=== PATIENT | male | born 1940 | race Caucasian/White ===

== ENCOUNTER → 2019-03-20 | Emergency (ER) | payer MEDICARE, OTHER ==
[~2019-03-20] MED LIST: MORPHINE SULFATE 10 MG/ML INJ IV ONE; NORMAL SALINE 1000 ML 1,000 ML IV ONE; ONDANSETRON HCL INJ/PF 4 MG/2 ML SDV IV ONE; OXYCODONE-ACETAMINOPHEN 5-325 MG TABLET PO ONE
--- NOTE | 2019-03-20 15:20 | ER Document Report ---
ED Medical Screen (RME) - General Chief Complaint: Fall Injury Stated Complaint: FALL,RIGHT HIP PAIN Time Seen by Provider: 03/20/19 15:04 Primary Care Provider: JS WATSON [Primary Care Provider] - Follow up as needed Mode of Arrival: Medic Notes: Patient states that he stepped onto his porch and lost his balance causing him to fall. Patient states after the fall he did become lightheaded. Patient does complain of nausea. Patient denies any head injury chest pain or shortness of breath. Patient does complain of right hip pain. I have greeted and performed a rapid initial assessment of this patient. A comprehensive ED assessment and evaluation of the patient, analysis of test results and completion of the medical decision making process will be conducted by additional ED providers. TRAVEL OUTSIDE OF THE [place] 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
[2019-03-20 15:51] LABS: ABSOLUTE BASOPHILS # (AUTO) 0.1 10^3/uL (0.0-0.2); ABSOLUTE EOSINOPHILS # (AUTO) 0.1 10^3/uL (0.0-0.6); ABSOLUTE LYMPHOCYTES (AUTO) 2.2 10^3/uL (0.5-4.7); ABSOLUTE MONOCYTES (AUTO) 0.6 10^3/uL (0.1-1.4); ABSOLUTE NEUT (AUTO) 8.1 10^3/uL (1.7-8.2); BASOPHILS % (AUTO) 1.2 % (0-2); HEMATOCRIT 39.8 % (37.9-51.0); HEMOGLOBIN 13.8 g/dL (13.5-17.0); LYMPHOCYTES % (AUTO) 19.5 % (13-45); MEAN CORPUSCULAR HEMOGLOBIN 30.9 pg (27.0-33.4); MEAN CORPUSCULAR HGB CONC 34.7 g/dL (32.0-36.0); MEAN CORPUSCULAR VOLUME 89 fl (80-97); MONOCYTES % (AUTO) 5.2 % (3-13); PLATELET COUNT 289 10^3/uL (150-450); RED BLOOD COUNT 4.47 10^6/uL (4.35-5.55); RED CELL DISTRIBUTION WIDTH 13.8 % (11.5-14.0); SEGMENTED NEUTROPHILS % (AUTO) 73.1 % (42-78); TOTAL CELLS COUNTED % (AUTO) 100 %; WHITE BLOOD COUNT 11.1 10^3/uL (4.0-10.5)
--- NOTE | 2019-03-20 16:02 | RADIOLOGY REPORT (SQ) ---
EXAM DESCRIPTION: HIP RIGHT AP/LATERAL COMPLETED DATE/TIME: 03/20/2019 3:45 pm REASON FOR STUDY: fall, hip pain COMPARISON: None. NUMBER OF VIEWS: Two views. TECHNIQUE: AP pelvis and additional frog-leg view of the right hip. LIMITATIONS: None. FINDINGS: MINERALIZATION: Osteopenia. RIGHT HIP: No fracture seen. No dislocation. LEFT HIP: No fracture or dislocation. No worrisome bone lesions. PUBIS AND ISCHIUM: No fracture. PELVIS: No fracture. SACRUM: No fracture or dislocation. No worrisome bone lesions. 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 SOFT TISSUES: Scattered vascular calcifications. OTHER: No other significant finding. IMPRESSION: No acute fracture or dislocation. However, evaluation suboptimal due to diffuse osteope jose j. If there is clinical concern for radiographically occult fracture, recommend cross-sectional im aging for further evaluation. TECHNICAL DOCUMENTATION: JOB ID: [id number] [employer]- All Rights Reserved Reading location - IP/workstation name: [email or web address]
[2019-03-20 16:09] LABS: ALANINE AMINOTRANSFERASE 39 U/L (21-72); ALBUMIN 3.7 g/dL (3.5-5.0); ALKALINE PHOSPHATASE 235 U/L (38-126); ANION GAP 9 (5-19); ASPARTATE AMINO TRANSFERASE 34 U/L (17-59); BILIRUBIN,DIRECT 0.3 mg/dL (0.0-0.4); BILIRUBIN,TOTAL 1.1 mg/dL (0.2-1.3); BLOOD UREA NITROGEN 14 mg/dL (7-20); CALCIUM 9.1 mg/dL (8.4-10.2); CARBON DIOXIDE 26 mmol/L (22-30); CHLORIDE 102 mmol/L (98-107); GLUCOSE 294 mg/dL (75-110); POTASSIUM 4.7 mmol/L (3.6-5.0); TOTAL PROTEIN 6.9 g/dL (6.3-8.2)
--- NOTE | 2019-03-20 16:54 | RADIOLOGY REPORT (SQ) ---
EXAM DESCRIPTION: CT RT LOWER EXTREMITY WITHOUT COMPLETED DATE/TIME: 03/20/2019 4:40 pm REASON FOR STUDY: fall pain COMPARISON: Earlier same day right hip radiographs TECHNIQUE: CT scan of the right hip performed without intravenous or oral contrast. Images reviewed with soft tissue and bone windows. Reconstructed coronal and sagittal MPR images reviewed. All liliana ges stored on PACS. All CT scanners at this facility use dose modulation, iterative reconstruction, and/or weight based d osing when appropriate to reduce radiation dose to as low as reasonably achievable (ALARA). [facility]: Dose Right [facility]: CareDose [facility]: Dose Right [facility]: Teradose 4D [facility]: Smart [employer] RADIATION DOSE: CT Rad equipment meets quality standard of care and radiation dose reduction techniq ues were employed. CTDIvol: 14.7 mGy. DLP: 389 mGy-cm. mGy. LIMITATIONS: None. FINDINGS: Bones: Diffuse osteopenia. Comminuted minimally displaced fracture involving the base of the right femoral neck extending into the intertrochanteric region and greater trochanter of the rig ht femur. No additional fracture seen. Right hip remains aligned. No focal sclerotic or lytic osse ous lesion. Soft tissues: Minimal subcutaneous fat stranding. Scattered vascular calcifications. No radiopaque foreign body or soft tissue gas. Other: Visualized intrapelvic contents are normal. IMPRESSION: Comminuted, minimally displaced fracture involving the base of the right femoral neck ex tending into the intertrochanteric region and greater trochanter of right femur. TECHNICAL DOCUMENTATION: JOB ID: [id number] Quality ID # [id number]: Final reports with documentation of one or more dose reduction techniques (e.g., Au tomated exposure control, adjustment of the mA and/or kV according to patient size, use of iterative reconstruction technique) 2010 [employer]- All Rights Reserved Reading location - IP/workstation name: [email or web address]
--- NOTE | 2019-03-20 17:59 | ER Document Report ---
ED Fall - General Chief Complaint: Fall Injury Stated Complaint: FALL,RIGHT HIP PAIN Time Seen by Provider: 03/20/19 15:04 Primary Care Provider: JS WATSON [Primary Care Provider] - Follow up as needed Mode of Arrival: Medic Information source: Patient, Relative Notes: 78-year-old male presented to ED for complaint of pain to his right hip. He states he fell off of his porch after losing his balance causing him to fall. He states after he fell he became lightheaded. He states the pain causes him to be very nauseated. He denies hitting his head any chest pain or any shortness of breath. He does have severe pain to his right hip. He was seen by Shy Arriaga SURGICAL TECHNICIAN ordered a x-ray which showed that they could not tell if he had a fracture or not due to the fact that he was osteopenic. After I got this result back I did order a CT of the right lower extremity. The CT does show a comminuted, minimally displaced fracture involving the base of the right femoral neck extending into the intertrochanter region and the greater trochanter of the right femur. TRAVEL OUTSIDE OF THE [place] IN LAST 30 DAYS: No - HPI Occurred: This morning Where: Home, Outdoors Context: Tripped, Slipped Associated symptoms: None Location of injury/pain: Hip Quality of pain: Sharp, Stabbing, Throbbing Severity: Severe Pain Level: 5 - Related data Allergies/Adverse Reactions: No Known Allergies Allergy (Verified 03/20/19 14:27) Past Medical History - General Information source: Patient, Relative - Social History Smoking Status: Never Smoker Chew tobacco use (# tins/day): No Frequency of alcohol use: None Drug Abuse: None Lives with: Family Family History: Reviewed & Not Pertinent Patient has suicidal ideation: No Patient has homicidal ideation: No - Past Medical History Cardiac Medical History: Reports: Hx Hypertension Denies: Hx Coronary Artery Disease, Hx Heart Attack Pulmonary Medical History: Reports: None EENT Medical History: Reports: None Neurological Medical History: Reports: None Endocrine Medical History: Reports: Hx Diabetes Mellitus Type 2 Renal/ Medical History: Reports: None Malignancy Medical History: Reports None GI Medical History: Reports: None Musculoskeletal Medical History: 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, Reports Hx Musculoskeletal Trauma Skin Medical History: Reports None Psychiatric Medical History: Reports: None Traumatic Medical History: Reports: Hx Fractures Infectious Medical History: Reports: None Surgical Hx: Negative - Immunizations Hx Diphtheria, Pertussis, Tetanus Vaccination: Yes Review of Systems - Review of Systems Constitutional: No symptoms reported EENT: No symptoms reported Cardiovascular: No symptoms reported, Lightheaded - After fall Respiratory: No symptoms reported Gastrointestinal: Nausea - After fall Genitourinary: No symptoms reported Male Genitourinary: No symptoms reported Musculoskeletal: Joint pain - Right hip pain externally rotated unable to move hip without severe pain Skin: No symptoms reported Hematologic/Lymphatic: No symptoms reported Neurological/Psychological: No symptoms reported -: Yes All other systems reviewed and negative Physical Exam - Vital signs Vitals: Temp Pulse Resp BP Pulse Ox 97.5 F 57 L 16 157/61 H 95 03/20/19 14:32 03/20/19 14:32 03/20/19 14:32 03/20/19 14:32 03/20/19 14:32 Interpretation: Normal - General General appearance: Appears well, Alert - HEENT Head: Normocephalic, Atraumatic Eyes: Normal Pupils: PERRL - Respiratory Respiratory status: No respiratory distress Chest status: Nontender Breath sounds: Normal Chest palpation: Normal - Cardiovascular Rhythm: Regular Heart sounds: Normal auscultation Murmur: No - Abdominal Inspection: Normal Distension: No distension Bowel sounds: Normal Tenderness: Nontender Organomegaly: No organomegaly - Back Back: Normal, Nontender - Extremities General upper extremity: Normal inspection, Nontender, Normal color, Normal ROM, Normal temperature General lower extremity: Normal color, Normal temperature. No: Tameka's sign Hip: Tender, Pain with ROM, Unable to bear weight, Other - Externally rotated. No: Deformity, Dislocation, Ecchymosis, Instability, Laceration Thigh: Tender, Unable to bear weight. No: Ecchymosis Knee: Normal, Nontender Calf: Normal, Nontender Ankle: Normal, Nontender Foot: Normal, Nontender - Neurological Neuro grossly intact: Yes Cognition: Normal Orientation: AAOx4 Turner Coma Scale Eye Opening: Spontaneous Alexandra Coma Scale Verbal: Oriented Turner Coma Scale Motor: Obeys Commands Alexandra Coma Scale Total: 15 Speech: Normal Motor strength normal: LUE, RUE, LLE, RLE Sensory: Normal - Psychological Associated symptoms: Normal affect, Normal mood - Skin Skin Temperature: Warm Skin Moisture: Dry Skin Color: Normal Course - Re-evaluation Re-evalutation: 03/20/19 18:[address] Mesa history physical x-ray results and CT results. She stated since we do not have orthopedics the patient will need to be transferred. [facility] transfer line has been called and waiting callback from orthopedics. 03/20/19 18:[address]Sean Gutierrez who accepted the patient at [facility] for transfer. [facility] will send a truck for the patient. Patient and family have been informed that they will be going to [facility]. IV fluids are running and patient has received morphine for his pain he received Percocet earlier but still had pain. Patient is stable except for the pain to the right hip. 03/20/19 20:01 Transport is present at the bedside for transfer to [facility]. Patient states he is having pain 9/10 at this moment so I will give him 4 mg IV morphine before movement to the stretcher for transfer. Patient is stable and he will be transported [facility]. - Vital Signs Vital signs: Temp Pulse Resp BP Pulse Ox 98.0 F 63 16 153/72 H 95 03/20/19 20:12 03/20/19 20:12 03/20/19 20:12 03/20/19 20:12 03/20/19 20:12 - Laboratory Result Diagrams: 03/20/19 15:36 03/20/19 15:36 Laboratory results interpreted by me: 03/20/19 03/20/19 03/20/19 15:36 15:36 19:49 WBC 11.1 H Glucose 294 H Alkaline Phosphatase 235 H Urine Protein 30 H Urine Glucose (UA) >=500 H Urine Blood MODERATE H - Diagnostic Test Radiology reviewed: Image reviewed, Reports reviewed - EKG Interpretation by Ct EKG shows normal: Sinus rhythm Rate: Normal Rhythm: NSR Fabius/QRS: Left axis deviation Discharge - Discharge Clinical Impression: Closed right hip fracture Qualifiers: Encounter type: initial encounter Qualified Code(s): S72.001A - Fracture of unspecified part of neck of right femur, initial encounter for closed fracture Condition: Stable Disposition: [facility] Referrals: LOCALMD,NO [Primary Care Provider] - Follow up as needed
--- NOTE | 2019-03-20 18:50 | ER Document Report ---
Doctor's Note Notes: 03/20/19 18:49 Patient seen in conjunction with the nurse practitioner, please see her note correlate with mine. In short this patient tripped, fell onto his right side, and fractured his right hip. He denies hitting his head or losing consciousness. He has no neck or back pain. Physical exam reveals a non- shortened, but externally rotated right leg. He is tender over the right greater trochanter. Neurovascularly intact distally. Imaging does reveal a femoral neck fracture. Unfortunately do not have orthopedics here today. We will transfer the patient for further care.
[2019-03-20 20:15] VITALS: BP 153/72
[2019-03-20 20:33] LABS: APPEARANCE,URINE CLEAR; BILIRUBIN,URINE NEGATIVE (NEGATIVE); COLOR,URINE YELLOW; GLUCOSE, URINE >=500 mg/dL (NEGATIVE); KETONES,URINE NEGATIVE (NEGATIVE); LEUKOCYTE ESTERASE,URINE NEGATIVE (NEGATIVE); NITRITE,URINE NEGATIVE (NEGATIVE); PROTEIN,URINE 30 mg/dL (NEGATIVE); URINE SPECIFIC GRAVITY 1.018; UROBILINOGEN,URINE NEGATIVE mg/dL (<2.0)
--- NOTE | 2019-03-20 22:02 | EKG REPORT ---
SEVERITY:- ABNORMAL ECG - SINUS RHYTHM LEFT AXIS DEVIATION LEFT VENTRICULAR HYPERTROPHY : Confirmed by: Amaury Caldwell MD 20-Mar-2019 22:01:46
== END | disposition short-term general hospital (02) ==
LOC: ER 14:26
DX: S72.001A Fracture of unspecified part of neck of right femur, initial encounter for closed fracture (principal); R40.2412 Glasgow coma scale score 13-15, at arrival to emergency department; W01.0XXA Fall on same level from slipping, tripping and stumbling without subsequent striking against object, initial encounter; Y92.008 Other place in unspecified non-institutional (private) residence as the place of occurrence of the external cause; I10 Essential (primary) hypertension; E11.9 Type 2 diabetes mellitus without complications; M19.90 Unspecified osteoarthritis, unspecified site
CPT/HCPCS: 93005; 96376; 99285; 96361; 96374; 96375; 36415; 85025; 80053; 81001; 73502; 73700; 93010; J2270; A9270; J2405; J7030

== ENCOUNTER 2019-08-01 13:14 | Observation (INO) | payer MEDICARE, OTHER ==
[2019-08-01 14:47] LABS: ABSOLUTE LYMPHOCYTES (AUTO) 1.8 10^3/uL (0.5-4.7); ABSOLUTE MONOCYTES (AUTO) 0.4 10^3/uL (0.1-1.4); ABSOLUTE NEUT (AUTO) 5.5 10^3/uL (1.7-8.2); BASOPHILS % (AUTO) 0.3 % (0-2); EOSINOPHILS % (AUTO) 0.5 % (0-6); HEMATOCRIT 36.1 % (37.9-51.0); HEMOGLOBIN 12.2 g/dL (13.5-17.0); MEAN CORPUSCULAR HEMOGLOBIN 28.5 pg (27.0-33.4); MEAN CORPUSCULAR HGB CONC 33.7 g/dL (32.0-36.0); MEAN CORPUSCULAR VOLUME 85 fl (80-97); MONOCYTES % (AUTO) 5.4 % (3-13); PLATELET COUNT 290 10^3/uL (150-450); RED BLOOD COUNT 4.28 10^6/uL (4.35-5.55); RED CELL DISTRIBUTION WIDTH 15.3 % (11.5-14.0); SEGMENTED NEUTROPHILS % (AUTO) 70.8 % (42-78); TOTAL CELLS COUNTED % (AUTO) 100 %; WHITE BLOOD COUNT 7.8 10^3/uL (4.0-10.5)
[2019-08-01 15:08] LABS: ALBUMIN 2.9 g/dL (3.5-5.0); ALKALINE PHOSPHATASE 277 U/L (38-126); ANION GAP 11 (5-19); ASPARTATE AMINO TRANSFERASE 44 U/L (17-59); BILIRUBIN,DIRECT 0.3 mg/dL (0.0-0.4); BILIRUBIN,TOTAL 0.6 mg/dL (0.2-1.3); BLOOD UREA NITROGEN 11 mg/dL (7-20); CALCIUM 8.3 mg/dL (8.4-10.2); CARBON DIOXIDE 22 mmol/L (22-30); CHLORIDE 109 mmol/L (98-107); GLUCOSE 115 mg/dL (75-110); POTASSIUM 3.7 mmol/L (3.6-5.0); TOTAL PROTEIN 6.2 g/dL (6.3-8.2)
[2019-08-01 17:05] LABS: APPEARANCE,URINE SLIGHTLY-CLOUDY; COLOR,URINE YELLOW; GLUCOSE, URINE NEGATIVE (NEGATIVE)
[2019-08-01 17:06] LABS: BILIRUBIN,URINE NEGATIVE (NEGATIVE); KETONES,URINE NEGATIVE (NEGATIVE); LEUKOCYTE ESTERASE,URINE LARGE (NEGATIVE); NITRITE,URINE POSITIVE (NEGATIVE); PROTEIN,URINE 30 mg/dL (NEGATIVE); URINE SPECIFIC GRAVITY 1.009; UROBILINOGEN,URINE NEGATIVE mg/dL (<2.0)
--- NOTE | 2019-08-01 17:50 | ER Document Report ---
ED Blood Sugar Problem - General Chief Complaint: Low Blood Sugar Stated Complaint: DIABETIC ISSUES Time Seen by Provider: 08/01/19 15:43 Mode of Arrival: Medic Information source: Patient, Relative, Emergency Med Personnel TRAVEL OUTSIDE OF THE [place] IN LAST 30 DAYS: No - HPI Notes: Patient is brought in by paramedics for low blood sugar. Patient lives with his daughter at home. Today it was noticed by daughter that he was unresponsive and had a blood sugar of 32. She was able to get some cake icing in him. Apparently he was also given some glucose by paramedics. By the time he arrived here his blood sugar was back above 100. Patient is a very poor historian and confused. His history is not reliable. Currently he denies any pain or trouble breathing. He denies any nausea. Apparently per daughter, whom I spoke to on the phone, patient had a similar episode yesterday. However when paramedics were called he refused to come to the hospital. Today he did agree to come so paramedics brought him. She states that there is been no new changes of medication. No changes of appetite. He states he has had some loose stool for 3 to 4 days. She also states recently he has had a "infected gallbladder". She states that he was not operated on but a drain was placed. She states his drain was removed several weeks ago. Patient symptoms were intermittent. There are made better with glucose and worse without it. There is no known radiation symptoms. They were severe. - Related Data Allergies/Adverse Reactions: metformin Adverse Reaction (Verified 08/01/19 14:08) Home Medications: Lantus Past Medical History - General Information source: Patient - Social History Smoking Status: Former Smoker Frequency of alcohol use: None Drug Abuse: None Family History: Reviewed & Not Pertinent Patient has suicidal ideation: No Patient has homicidal ideation: No - Past Medical History Cardiac Medical History: Reports: Hx Hypertension Denies: Hx Coronary Artery Disease, Hx Heart Attack Pulmonary Medical History: Denies: Hx Asthma, Hx Bronchitis, Hx COPD, Hx Pneumonia Neurological Medical History: Denies: Hx Cerebrovascular Accident, Hx Seizures Endocrine Medical History: Reports: Hx Diabetes Mellitus Type 2 Renal/ Medical History: Denies: Hx Peritoneal Dialysis Musculoskeletal Medical History: 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 Denies: Hx Pacemaker - Immunizations Hx Diphtheria, Pertussis, Tetanus Vaccination: Yes Review of Systems - Review of Systems -: Yes ROS unobtainable due to patient's medical condition - Patient has significant confusion and is an unreliable historian Physical Exam - Vital signs Vitals: Pulse Ox 97 08/01/19 13:29 Interpretation: Normal - General General appearance: Appears well, Alert In distress: None - HEENT Head: Normocephalic, Atraumatic Eyes: Normal Pupils: PERRL - Respiratory Respiratory status: No respiratory distress Chest status: Nontender Breath sounds: Normal Chest palpation: Normal - Cardiovascular Rhythm: Regular Heart sounds: Normal auscultation Murmur: No - Abdominal Inspection: Normal Distension: No distension Bowel sounds: Normal Tenderness: Nontender Organomegaly: No organomegaly - Back Back: Normal, Nontender - Extremities General upper extremity: Normal inspection, Nontender, Normal color, Normal ROM, Normal temperature General lower extremity: Normal inspection, Nontender, Normal color, Normal ROM, Normal temperature, Normal weight bearing. No: Tameka's sign - Neurological Cognition: Confused Orientation: Disoriented to time Alexandra Coma Scale Eye Opening: Spontaneous Lincoln Coma Scale Verbal: Confused Alexandra Coma Scale Motor: Obeys Commands Alexandra Coma Scale Total: 14 Speech: Normal Motor strength normal: LUE, RUE, LLE, RLE Sensory: Normal - Psychological Associated symptoms: Normal affect, Normal mood - Skin Skin Temperature: Warm Skin Moisture: Dry Skin Color: Normal Course - Re-evaluation Re-evalutation: 08/01/19 17:49 Patient is brought in from home for low blood sugar. Patient is noticed as well to have a urinary tract infection. Per daughter his confusion is worse than baseline. Patient has had multiple episodes of hypoglycemia over the last several days. It seems most prudent to bring the patient in for adjustment of his insulin as well as treatment of the urinary tract infection. - Vital Signs Vital signs: Temp Pulse Resp BP Pulse Ox 97.0 F 21 H 159/92 H 96 08/01/19 14:01 08/01/19 14:01 08/01/19 14:01 08/01/19 14:01 - Laboratory Result Diagrams: 08/01/19 14:41 08/01/19 14:41 Laboratory results interpreted by me: 08/01/19 08/01/19 08/01/19 14:39 14:41 14:41 RBC 4.28 L Hgb 12.2 L Hct 36.1 L RDW 15.3 H Chloride 109 H Glucose 115 H POC Glucose 114 H Hemoglobin A1c % Calcium 8.3 L Alkaline Phosphatase 277 H Total Protein 6.2 L Albumin 2.9 L Urine Protein Urine Blood Urine Nitrite Ur Leukocyte Esterase 08/01/19 08/01/19 08/01/19 14:41 16:10 16:32 RBC Hgb Hct RDW Chloride Glucose POC Glucose 126 H Hemoglobin A1c % 6.3 H Calcium Alkaline Phosphatase Total Protein Albumin Urine Protein 30 H Urine Blood SMALL H Urine Nitrite POSITIVE H Ur Leukocyte Esterase LARGE H 08/01/19 17:31 RBC Hgb Hct RDW Chloride Glucose POC Glucose 122 H Hemoglobin A1c % Calcium Alkaline Phosphatase Total Protein Albumin Urine Protein Urine Blood Urine Nitrite Ur Leukocyte Esterase Discharge - Discharge Clinical Impression: Hypoglycemia, Confusion UTI (urinary tract infection) Qualifiers: Urinary tract infection type: acute cystitis Hematuria presence: with hematuria Qualified Code(s): N30.01 - Acute cystitis with hematuria Condition: Stable Disposition: ADMITTED INPATIENT Admitting Provider: Sylvia (Hospitalist) - chiki hernandez do admit Unit Admitted: Medical Floor
[2019-08-01] MEDS ORDERED: NORMAL SALINE 1000 ML 1,000 ML IV ONE (17:51)
[2019-08-01] MEDS ORDERED: CEFTRIAXONE 1 GM/D5W RTU 1 GM/50 ML RTUPB IV ONE (17:51)
[2019-08-01] MEDS ORDERED: DEXTROSE 50%-WATER 25 GM/50 ML DISP.SYRIN IV PRN ×2 (18:31)
[2019-08-01] MEDS ORDERED: GLUCAGON,HUMAN RECOMB 1 MG INJ IM PRN (18:31)
[2019-08-01] MEDS ORDERED: DEXTROSE 40% GEL 15 GM TUBE PO PRN ×2 (18:31)
[2019-08-01] MEDS ORDERED: ACETAMINOPHEN 325 MG TABLET PO PRN (18:32)
[2019-08-01] MEDS ORDERED: MAGNESIUM HYDROXIDE SUSP 30 ML UDCUP PO PRN (18:32)
[2019-08-01] MEDS ORDERED: ALBUTEROL SULFATE 0.083% NEB 2.5 MG/3 ML AMPUL NEB PRN (18:32)
[2019-08-01] MEDS ORDERED: NORMAL SALINE 1000 ML 1,000 ML IV PRN (18:32)
[2019-08-01] MEDS ORDERED: MAG HYDROX/AL HYDROX/SIMETH SUSP 30 ML UDCUP PO PRN (18:32)
[2019-08-01] MEDS ORDERED: ONDANSETRON HCL INJ/PF 4 MG/2 ML SDV IV PRN (18:32)
[2019-08-01] MEDS ORDERED: HYDRALAZINE HCL INJ/PF 20 MG/1 ML SDV IV PRN (18:36)
--- NOTE | 2019-08-01 18:36 | PDOC H&P ---
History of Present Illness Admission Date/PCP: 08/01/19 17:54 Patient complains of: Dysuria History of Present Illness: VIANNEY MOJICA is a 79 year old male with a limited past medical history due to patient being a poor historian (likely underlying dementia) but known to have hypertension, hyperlipidemia, DM 2, and possible remote CVA per EMS who presented to the emergency department today with a complaint of hypoglycemia; found to have a blood glucose of 30. Per EMS, they were called to the home yesterday as well due to hypoglycemia despite patient reportedly having adequate p.o. intake. The patient is cared for by his daughter, unfortunately, she is not present at the time of my exam to provide additional history. Patient's only complaint today is dysuria. Evaluation by the ED provider revealed hypertension (blood pressure 159/92) unremarkable CBC, normal blood sugars post treatment by EMS, A1c of 6.3%, and urinalysis demonstrating UTI. The patient is provided IV fluids and empiric Rocephin. He is referred to the hospitalist service for admission and management of the above-stated complaints and findings. Past Medical History Cardiac Medical History: Reports: Hypertension Denies: Coronary Artery Disease, Myocardial Infarction Pulmonary Medical History: Reports: None EENT Medical History: Reports: None Neurological Medical History: Denies: Seizures Endocrine Medical History: Reports: Diabetes Mellitus Type 2 Renal/ Medical History: Reports: None Malignancy Medical History: Reports: None GI Medical History: Reports: None Musculoskeltal Medical History: Reports: Arthritis Skin Medical History: Reports: None Psychiatric Medical History: Reports: Dementia Traumatic Medical History: Reports: None Hematology: Denies: Anemia Infectious Medical History: Reports: None Past Surgical History Past Surgical History: Denies: Pacemaker Social History Information Source: Patient, [facility] Records Lives with: Family Smoking Status: Former Smoker Electronic Cigarette use?: No Frequency of Alcohol Use: None Hx Recreational Drug Use: No Drugs: None Hx Prescription Drug Abuse: No - Advance Directive Resuscitation Status: Full Code Family History Family History: Unable to obtain Parental Family History Reviewed: No - Pateint does not know med hx Children Family History Reviewed: Unknown Sibling(s) Family History Reviewed.: Unknown Medication/Allergy Home Medications: Actos 45 mg PO DAILY 08/19/11 Aspirin 325 mg PO DAILY 08/19/11 Glimepiride 2 mg PO DAILY 08/19/11 Lisinopril 40 mg PO DAILY 08/19/11 Metformin HCl 1,000 mg PO BID 08/19/11 Multivitamin 1 tab PO DAILY 08/19/11 Tricor 145 mg PO DAILY 08/19/11 Allergies/Adverse Reactions: metformin Adverse Reaction (Verified 08/01/19 14:08) Review of Systems Constitutional: ABSENT: chills, fever(s), headache(s), weight gain, weight loss Eyes: ABSENT: visual disturbances Ears: ABSENT: hearing changes Cardiovascular: ABSENT: chest pain, dyspnea on exertion, edema, orthropnea, palpitations Respiratory: ABSENT: cough, hemoptysis Gastrointestinal: ABSENT: abdominal pain, constipation, diarrhea, hematemesis, hematochezia, nausea, vomiting Genitourinary: PRESENT: dysuria. ABSENT: hematuria Musculoskeletal: ABSENT: joint swelling Integumentary: ABSENT: rash, wounds Neurological: ABSENT: abnormal gait, abnormal speech, confusion, dizziness, focal weakness, syncope Psychiatric: ABSENT: anxiety, depression, homidical ideation, suicidal ideation Endocrine: PRESENT: other - recurrent hypoglycemia. ABSENT: cold intolerance, heat intolerance, polydipsia, polyuria Hematologic/Lymphatic: ABSENT: easy bleeding, easy bruising Physical Exam Vital Signs: Temp Pulse Resp BP Pulse Ox 97.0 F 21 H 159/92 H 96 08/01/19 14:01 08/01/19 14:01 08/01/19 14:01 08/01/19 14:01 Intake & Output 07/31/19 08/01/19 08/02/19 06:59 06:59 06:59 Weight 67 kg General appearance: PRESENT: no acute distress, cooperative, disheveled, well- developed, well-nourished Head exam: PRESENT: atraumatic, normocephalic Eye exam: PRESENT: conjunctiva pink, EOMI, PERRLA. ABSENT: scleral icterus Ear exam: PRESENT: normal external ear exam Mouth exam: PRESENT: moist, tongue midline Neck exam: ABSENT: carotid bruit, JVD, lymphadenopathy, thyromegaly Respiratory exam: PRESENT: clear to auscultation roverto, symmetrical, unlabored. ABSENT: rales, rhonchi, wheezes Cardiovascular exam: PRESENT: RRR, +S1, +S2. ABSENT: diastolic murmur, rubs, systolic murmur Pulses: PRESENT: normal dorsalis pedis pul Vascular exam: PRESENT: normal capillary refill GI/Abdominal exam: PRESENT: normal bowel sounds, soft. ABSENT: distended, guarding, mass, organolmegaly, rebound, tenderness Rectal exam: PRESENT: deferred Extremities exam: PRESENT: full ROM. ABSENT: calf tenderness, clubbing, pedal edema Neurological exam: PRESENT: alert, awake, oriented to person, oriented to place, oriented to situation, CN II-XII grossly intact, other - intermittent confusion/forgetfullness. ABSENT: motor sensory deficit Psychiatric exam: PRESENT: appropriate affect, normal mood. ABSENT: homicidal ideation, suicidal ideation Skin exam: PRESENT: dry, intact, warm. ABSENT: cyanosis, rash Results Laboratory Results: 08/01/19 14:41 08/01/19 14:41 08/01/19 08/01/19 08/01/19 14:41 14:41 16:32 WBC 7.8 RBC 4.28 L Hgb 12.2 L Hct 36.1 L MCV 85 MCH 28.5 MCHC 33.7 RDW 15.3 H Plt Count 290 Seg Neutrophils % 70.8 Sodium 141.5 Potassium 3.7 Chloride 109 H Carbon Dioxide 22 Anion Gap 11 BUN 11 Creatinine 0.88 Est GFR ( Amer) > 60 Glucose 115 H Calcium 8.3 L Total Bilirubin 0.6 AST 44 Alkaline Phosphatase 277 H Total Protein 6.2 L Albumin 2.9 L Urine Color YELLOW Urine Appearance SLIGHTLY-CLOUDY Urine pH 5.0 Ur Specific [place] 1.009 Urine Protein 30 H Urine Glucose (UA) NEGATIVE Urine Ketones NEGATIVE Urine Blood SMALL H Urine Nitrite POSITIVE H Ur Leukocyte Esterase LARGE H Urine WBC (Auto) >182 Urine RBC (Auto) 47 Assessment and Plan - Diagnosis (1) Hypoglycemia Is this a current diagnosis for this admission?: Yes Plan: Recurrent hypoglycemia events at home requiring EMS response. Today patient was found to have a glucose of 30. Likely multifactorial secondary to urinary tract infection and insulin dosing. Patient reportedly takes Lantus 20 units nightly. Blood sugars have been stable since arrival to the emergency department. A1c noted to be 6.3%. Patient is admitted to the medical floor. We will continue Accu-Cheks before meals and at bedtime with sliding scale i nsulin only. Hypoglycemia protocol in place. For a patient of his age and life expectancy, a goal A1c of less than 8.5% is acceptable. This patient likely does not require long-acting insulin; and c ertainly would benefit from dose reduction. PCP follow-up. (2) UTI (urinary tract infection) Qualifiers: Urinary tract infection type: acute cystitis Hematuria presence: with hematuria Qualified Code(s): N30.01 - Acute cystitis with hematuria Is this a current diagnosis for this admission?: Yes Plan: Urine culture demonstrates UTI. Urine culture pending. Continue gentle IV fluids. Empiric IV Rocephin. (3) Hypertension Is this a current diagnosis for this admission?: Yes Plan: Will resume home medication regiment once reconciled. IV hydralazine as needed for blood pressure control. (4) Confusion Is this a current diagnosis for this admission?: Yes Plan: Likely multifactorial secondary to multiple recent hypoglycemic events, urinary tract infection, and underlying dementia. Per EMS he may have a remote history of CVA. Unfortunately the patient is unable to confirm his medical history; is a poor historian, and there are no family members at bedside at this time. We will ask the discharge planning team to become involved. He may benefit from home health services. Patient navigator is consulted. Out of bed with assistance, fall precautions. - Time Time Spent with patient: 35 or more minutes Medications reviewed and adjusted accordingly: Yes Anticipated discharge: Home Within: within 24 hours
[2019-08-01] MEDS: FAMOTIDINE 20 MG TABLET PO SCH (22:28)
[2019-08-01] MEDS: HEPARIN SOD (PORCINE) 5,000 UNIT/ML 1 ML VIAL SUBCUT SCH (22:28)
[2019-08-01] MEDS ORDERED: INFLUENZA QUAD (6MOS+) 2019-20 VAC 0.5 ML SYR IM ONE (23:04)
[2019-08-01] MEDS: INSULIN LISPRO 100 UNIT/ML 3 ML VIAL SUBCUT SCH (23:05)
[2019-08-02 05:10] LABS: HEMATOCRIT 34.4 % (37.9-51.0); HEMOGLOBIN 11.4 g/dL (13.5-17.0); MEAN CORPUSCULAR HEMOGLOBIN 28.2 pg (27.0-33.4); MEAN CORPUSCULAR HGB CONC 33.2 g/dL (32.0-36.0); MEAN CORPUSCULAR VOLUME 85 fl (80-97); PLATELET COUNT 314 10^3/uL (150-450); RED BLOOD COUNT 4.05 10^6/uL (4.35-5.55); RED CELL DISTRIBUTION WIDTH 15.5 % (11.5-14.0); WHITE BLOOD COUNT 8.5 10^3/uL (4.0-10.5)
[2019-08-02] MEDS: HEPARIN SOD (PORCINE) 5,000 UNIT/ML 1 ML VIAL SUBCUT SCH ×3 (05:17→21:40)
[2019-08-02 05:25] LABS: ANION GAP 8 (5-19); BLOOD UREA NITROGEN 10 mg/dL (7-20); CALCIUM 8.2 mg/dL (8.4-10.2); CARBON DIOXIDE 24 mmol/L (22-30); CHLORIDE 108 mmol/L (98-107); GLUCOSE 75 mg/dL (75-110); POTASSIUM 3.9 mmol/L (3.6-5.0)
[2019-08-02] MEDS: INSULIN LISPRO 100 UNIT/ML 3 ML VIAL SUBCUT SCH ×4 (09:19→21:41)
[2019-08-02] MEDS: DOCUSATE SODIUM 100 MG CAPSULE PO SCH (09:24)
[2019-08-02] MEDS: FAMOTIDINE 20 MG TABLET PO SCH ×2 (09:24→21:40)
[2019-08-02] MEDS: CEFTRIAXONE 1 GM/D5W RTU 1 GM/50 ML RTUPB IV SCH (09:24)
--- NOTE | 2019-08-02 13:03 | PDOC PROGRESS REPORT ---
Subjective Progress Note for:: 08/02/19 Subjective:: Patient is sitting in bed eating lunch. He states that he feels better. Reason For Visit: UTI,HYPOGLYCEMIA Physical Exam Vital Signs: Temp Pulse Resp BP Pulse Ox 97.8 F 65 16 154/68 H 98 08/02/19 11:21 08/02/19 11:21 08/02/19 11:21 08/02/19 11:21 08/02/19 11:21 Intake & Output 08/01/19 08/02/19 08/03/19 06:59 06:59 06:59 Intake Total 1488 Balance 1488 Weight 67 kg General appearance: PRESENT: no acute distress, cooperative Head exam: PRESENT: atraumatic, normocephalic Ear exam: PRESENT: normal external ear exam. ABSENT: bleeding, drainage Neck exam: PRESENT: full ROM. ABSENT: JVD, lymphadenopathy, tenderness Respiratory exam: PRESENT: clear to auscultation roverto, symmetrical, unlabored. ABSENT: accessory muscle use, rales, rhonchi, tachypnea, wheezes Cardiovascular exam: PRESENT: RRR, +S1, +S2, systolic murmur GI/Abdominal exam: PRESENT: normal bowel sounds, soft. ABSENT: distended, guarding, tenderness Rectal exam: PRESENT: deferred Extremities exam: ABSENT: joint swelling, pedal edema Neurological exam: PRESENT: alert, awake, oriented to person, oriented to place Psychiatric exam: PRESENT: flat affect. ABSENT: agitated, anxious Skin exam: PRESENT: other - Scratches on right leg Results Laboratory Results: 08/02/19 04:06 08/02/19 04:06 08/01/19 08/01/19 08/01/19 14:41 14:41 16:32 WBC 7.8 RBC 4.28 L Hgb 12.2 L Hct 36.1 L MCV 85 MCH 28.5 MCHC 33.7 RDW 15.3 H Plt Count 290 Seg Neutrophils % 70.8 Sodium 141.5 Potassium 3.7 Chloride 109 H Carbon Dioxide 22 Anion Gap 11 BUN 11 Creatinine 0.88 Est GFR ( Amer) > 60 Glucose 115 H Calcium 8.3 L Total Bilirubin 0.6 AST 44 Alkaline Phosphatase 277 H Total Protein 6.2 L Albumin 2.9 L TSH Urine Color YELLOW Urine Appearance SLIGHTLY-CLOUDY Urine pH 5.0 Ur Specific [place] 1.009 Urine Protein 30 H Urine Glucose (UA) NEGATIVE Urine Ketones NEGATIVE Urine Blood SMALL H Urine Nitrite POSITIVE H Ur Leukocyte Esterase LARGE H Urine WBC (Auto) >182 Urine RBC (Auto) 47 08/02/19 08/02/19 08/02/19 04:06 04:06 04:06 WBC 8.5 RBC 4.05 L Hgb 11.4 L Hct 34.4 L MCV 85 MCH 28.2 MCHC 33.2 RDW 15.5 H Plt Count 314 Seg Neutrophils % Sodium 139.9 Potassium 3.9 Chloride 108 H Carbon Dioxide 24 Anion Gap 8 BUN 10 Creatinine 0.86 Est GFR ( Amer) > 60 Glucose 75 Calcium 8.2 L Total Bilirubin AST Alkaline Phosphatase Total Protein Albumin TSH 8.77 H Urine Color Urine Appearance Urine pH Ur Specific [place] Urine Protein Urine Glucose (UA) Urine Ketones Urine Blood Urine Nitrite Ur Leukocyte Esterase Urine WBC (Auto) Urine RBC (Auto) Assessment and Plan - Diagnosis (1) Hypoglycemia Is this a current diagnosis for this admission?: Yes Plan: Recurrent hypoglycemia events at home requiring EMS response. Today patient was found to have a glucose of 30. Likely multifactorial secondary to urinary tract infection and insulin dosing. Patient reportedly takes Lantus 20 units nightly. Blood sugars have been stable since arrival to the emergency department. A1c noted to be 6.3%. Patient is admitted to the medical floor. We will continue Accu-Cheks before meals and at bedtime with sliding scale insulin only. Hypoglycemia protocol in place. For a patient of his age and life expectancy, a goal A1c of less than 8.5% is acceptable. This patient likely does not require long-acting insulin; and certainly would benefit from dose reduction. PCP follow-up. 08/02/2019-as noted above I do not believe the patient requires long-term insulin. He might benefit in fact from something as simple as glipizide. His hemoglobin A1c definitely supports good control. No further hypoglycemia noted. (2) UTI (urinary tract infection) Qualifiers: Urinary tract infection type: acute cystitis Hematuria presence: with hematuria Qualified Code(s): N30.01 - Acute cystitis with hematuria Is this a current diagnosis for this admission?: Yes Plan: Urine culture demonstrates UTI. Urine culture pending. Continue gentle IV fluids. Empiric IV Rocephin. 08/02/2019-the UA was markedly positive for white cells and leukocyte esterase. Unfortunately urine culture was never ordered. This makes identifying a specific bacteria and possible. It also limits the ability to focus antibiotic therapy based on sensitivities. We will continue the empiric Rocephin and likely change to oral antibiotic tomorrow in preparation for discharge. (3) Hypertension Is this a current diagnosis for this admission?: Yes Plan: Will resume home medication regiment once reconciled. IV hydralazine as needed for blood pressure control. 08/02/2019-no antihypertensive medication noted on medication reconciliation. With underlying diabetes I have opted to initiate lisinopril 5 mg daily. (4) Confusion Is this a current diagnosis for this admission?: Yes Plan: Likely multifactorial secondary to multiple recent hypoglycemic events, urinary tract infection, and underlying dementia. Per EMS he may have a remote history of CVA. Unfortunately the patient is unable to confirm his medical history; is a poor historian, and there are no family members at bedside at this time. We will ask the discharge planning team to become involved. He may benefit from home health services. Patient navigator is consulted. Out of bed with assistance, fall precautions. 08/02/2019-certainly better today. Still seems unable to completely focus. Glucose readings have been normal so it is not hypoglycemia. There is certainly could be the emergence of dementia as a new diagnosis. We will continue to monitor. Will discuss with family. May need closer supervision. (5) Hypothyroidism Qualifiers: Hypothyroidism type: unspecified Qualified Code(s): E03.9 - Hypothyroidism, unspecified Is this a current diagnosis for this admission?: Yes Plan: 08/02/2019-TSH was greater than 8.0. I will initiate levothyroxine at 25 mcg daily. (6) Diabetes mellitus type 2 in nonobese Is this a current diagnosis for this admission?: Yes Plan: 08/02/2019-the patient presented with a history of diabetes mellitus type 2 utilizing Lantus. Clearly the Lantus was overwhelming. Depending on his Accu- Cheks overnight I may institute low-dose glipizide tomorrow but I will recommend that they do not utilize long-acting insulin and at follow-up with the primary care provider establish a new regimen that is less likely to cause hypoglycemia. Unfortunately he does not tolerate metformin. - Plan Summary Summary: Slightly confused possibly. Cooperative to a degree. No insight - Time Time Spent with patient: 15-24 minutes Medications reviewed and adjusted accordingly: Yes Anticipated discharge: Home
[2019-08-02] MEDS ORDERED: ACETAMINOPHEN 325 MG TABLET PO PRN (20:51)
[2019-08-02] MEDS ORDERED: ATORVASTATIN CALCIUM 40 MG TABLET PO SCH (22:00)
[2019-08-03] MEDS: HEPARIN SOD (PORCINE) 5,000 UNIT/ML 1 ML VIAL SUBCUT SCH ×2 (05:24→15:18)
[2019-08-03] MEDS ORDERED: LEVOTHYROXINE SODIUM 0.025 MG TABLET PO SCH (06:00)
[2019-08-03] MEDS: INSULIN LISPRO 100 UNIT/ML 3 ML VIAL SUBCUT SCH ×3 (08:45→17:10)
[2019-08-03] MEDS ORDERED: LISINOPRIL 5 MG TABLET PO SCH (10:00)
[2019-08-03] MEDS ORDERED: DULOXETINE HCL 20 MG CAPSULE.DR PO SCH (10:00)
[2019-08-03] MEDS ORDERED: ASPIRIN 81 MG TABLET, ENT COATED PO SCH (10:00)
[2019-08-03] MEDS: DOCUSATE SODIUM 100 MG CAPSULE PO SCH (10:23)
[2019-08-03] MEDS: FAMOTIDINE 20 MG TABLET PO SCH (10:25)
[2019-08-03] MEDS: CEFTRIAXONE 1 GM/D5W RTU 1 GM/50 ML RTUPB IV SCH (10:26)
--- NOTE | 2019-08-03 13:08 | PDOC DISCHARGE SUMMARY ---
Impression - Admit/DC Date/PCP Admission Date/Primary Care Provider: 08/01/19 17:54 Discharge Date: 08/03/19 - Discharge Diagnosis (1) Hypoglycemia Is this a current diagnosis for this admission?: Yes (2) UTI (urinary tract infection) Is this a current diagnosis for this admission?: Yes (3) Hypertension Is this a current diagnosis for this admission?: Yes (4) Confusion Is this a current diagnosis for this admission?: Yes (5) Hypothyroidism Is this a current diagnosis for this admission?: Yes (6) Diabetes mellitus type 2 in nonobese Is this a current diagnosis for this admission?: Yes - Assessment Summary: Slightly confused possibly. Cooperative to a degree. No insight - Additional Information Resuscitation Status: Full Code Discharge Diet: Diabetic Discharge Activity: Activity As Tolerated Referrals: ANJANA DOMINGUEZ MD [NO LOCAL MD] - (FOLLOW UP; [facility] WILL [facility] TO [facility].) Prescriptions: Levofloxacin [Levaquin 250 mg Tablet] 250 mg PO DAILY 7 Days #7 tablet Lisinopril [Prinivil 5 mg Tablet] 5 mg PO DAILY 14 Days #14 tablet Levothyroxine Sodium [Synthroid 0.025 mg Tablet] 0.025 mg PO Q6AM 14 Days #14 tablet Home Medications: Acetaminophen [Tylenol] 650 mg PO Q6HP PRN 08/01/19 Aspirin [Ecotrin 81 mg EC Tablet] 81 mg PO DAILY 08/01/19 Atorvastatin Calcium [Lipitor 40 mg Tablet] 40 mg PO QHS 08/01/19 Duloxetine HCl [Cymbalta 20 mg Capsule.dr] 20 mg PO BID 08/01/19 Levofloxacin [Levaquin 250 mg Tablet] 250 mg PO DAILY 7 Days #7 tablet 08/03/19 Levothyroxine Sodium [Synthroid 0.025 mg Tablet] 0.025 mg PO Q6AM 14 Days #14 tablet 08/03/19 Lisinopril [Prinivil 5 mg Tablet] 5 mg PO DAILY 14 Days #14 tablet 08/03/19 History of Present Illiness History of Present Illness: VIANNEY MOJICA is a 79 year old male with a history of hypertension, hyperlipidemia, type 2 diabetes and possible remote stroke versus early dementia or both. He is not feeling well and EMS was called. He was found to have a b lood glucose of 30. In addition the day prior to admission they were called to his house and he had a low glucose again. He does get care from his daughter. He complained of some dysuria in the emergency department. He was also found to be hypertensive. Urinalysis had leukocyte esterase and many white blood cells. Blood pressure was elevated. He was in fact referred to the hospital service for admission. Hospital Course Hospital Course: The patient had an unremarkable hospital course. Holding his insulin he did very well. His diet appears intact. He was noted to be hypertensive and was started on lisinopril. His urinalysis was positive and highly suggestive of infection. Unfortunately urine culture was not obtained in the emergency depa rtment with his glucose is stable and on anti-hypertensive medication he will discharged home with home health. Physical Exam Vital Signs: Temp Pulse Resp BP Pulse Ox 98.3 F 73 16 147/71 H 93 08/03/19 00:00 08/03/19 00:00 08/03/19 00:00 08/03/19 00:00 08/03/19 00:00 Intake & Output 08/02/19 08/03/19 08/04/19 06:59 06:59 06:59 Intake Total 1488 1580 50 Balance 1488 1580 50 Weight 67 kg 66.5 kg General appearance: PRESENT: no acute distress, cooperative, well-developed Head exam: PRESENT: atraumatic, normocephalic Eye exam: PRESENT: conjunctiva pink. ABSENT: scleral icterus Ear exam: PRESENT: normal external ear exam. ABSENT: bleeding, drainage Mouth exam: PRESENT: moist, tongue midline Respiratory exam: PRESENT: clear to auscultation roverto, symmetrical, unlabored. ABSENT: rales, rhonchi, tachypnea, wheezes Cardiovascular exam: PRESENT: RRR, +S1, +S2 GI/Abdominal exam: PRESENT: normal bowel sounds, soft. ABSENT: distended, guarding, tenderness Rectal exam: PRESENT: deferred Gentrourinary exam: ABSENT: indwelling catheter Extremities exam: ABSENT: pedal edema Musculoskeletal exam: PRESENT: full ROM, normal inspection Neurological exam: PRESENT: alert, awake, oriented to person, oriented to place, oriented to situation Psychiatric exam: PRESENT: appropriate affect. ABSENT: agitated, anxious Focused psych exam: ABSENT: delusional, restlessness Results Laboratory Results: WBC 8.5 10^3/uL (4.0-10.5) 08/02/19 04:06 RBC 4.05 10^6/uL (4.35-5.55) L 08/02/19 04:06 Hgb 11.4 g/dL (13.5-17.0) L 08/02/19 04:06 Hct 34.4 % (37.9-51.0) L 08/02/19 04:06 MCV 85 fl (80-97) 08/02/19 04:06 MCH 28.2 pg (27.0-33.4) 08/02/19 04:06 MCHC 33.2 g/dL (32.0-36.0) 08/02/19 04:06 RDW 15.5 % (11.5-14.0) H 08/02/19 04:06 Plt Count 314 10^3/uL (150-450) 08/02/19 04:06 Lymph % (Auto) 23.0 % (13-45) 08/01/19 14:41 [place] % (Auto) 5.4 % (3-13) 08/01/19 14:41 Eos % (Auto) 0.5 % (0-6) 08/01/19 14:41 Baso % (Auto) 0.3 % (0-2) 08/01/19 14:41 Absolute Neuts (auto) 5.5 10^3/uL (1.7-8.2) 08/01/19 14:41 Absolute Lymphs (auto) 1.8 10^3/uL (0.5-4.7) 08/01/19 14:41 Absolute Monos (auto) 0.4 10^3/uL (0.1-1.4) 08/01/19 14:41 Absolute Eos (auto) 0.0 10^3/uL (0.0-0.6) 08/01/19 14:41 Absolute Basos (auto) 0.0 10^3/uL (0.0-0.2) 08/01/19 14:41 Seg Neutrophils % 70.8 % (42-78) 08/01/19 14:41 Sodium 139.9 mmol/L (137-145) 08/02/19 04:06 Potassium 3.9 mmol/L (3.6-5.0) 08/02/19 04:06 Chloride 108 mmol/L (98-107) H 08/02/19 04:06 Carbon Dioxide 24 mmol/L (22-30) 08/02/19 04:06 Anion Gap 8 (5-19) 08/02/19 04:06 BUN 10 mg/dL (7-20) 08/02/19 04:06 Creatinine 0.86 mg/dL (0.52-1.25) 08/02/19 04:06 Est GFR ( Amer) > 60 (>60) 08/02/19 04:06 Est GFR (MDRD) Non-Af > 60 (>60) 08/02/19 04:06 Glucose 75 mg/dL (75-110) 08/02/19 04:06 POC Glucose 78 mg/dL (70-110) 08/03/19 06:07 Hemoglobin A1c % 6.3 % (4.7-6.0) H 08/01/19 14:41 Calcium 8.2 mg/dL (8.4-10.2) L 08/02/19 04:06 Total Bilirubin 0.6 mg/dL (0.2-1.3) 08/01/19 14:41 Direct Bilirubin 0.3 mg/dL (0.0-0.4) 08/01/19 14:41 Neonat Total Bilirubin Not Reportable 08/01/19 14:41 Neonat Direct Bilirubin Not Reportable 08/01/19 14:41 Neonat Indirect Bili Not Reportable 08/01/19 14:41 AST 44 U/L (17-59) 08/01/19 14:41 ALT 28 U/L (<50) 08/01/19 14:41 Alkaline Phosphatase 277 U/L (38-126) H 08/01/19 14:41 Total Protein 6.2 g/dL (6.3-8.2) L 08/01/19 14:41 Albumin 2.9 g/dL (3.5-5.0) L 08/01/19 14:41 TSH 8.77 uIU/mL (0.47-4.68) H 08/02/19 04:06 Urine Color YELLOW 08/01/19 16:32 Urine Appearance SLIGHTLY-CLOUDY 08/01/19 16:32 Urine pH 5.0 (5.0-9.0) 08/01/19 16:32 Ur Specific [place] 1.009 08/01/19 16:32 Urine Protein 30 mg/dL (NEGATIVE) H 08/01/19 16:32 Urine Glucose (UA) NEGATIVE mg/dL (NEGATIVE) 08/01/19 16:32 Urine Ketones NEGATIVE mg/dL (NEGATIVE) 08/01/19 16:32 Urine Blood SMALL (NEGATIVE) H 08/01/19 16:32 Urine Nitrite POSITIVE (NEGATIVE) H 08/01/19 16:32 Urine Bilirubin NEGATIVE (NEGATIVE) 08/01/19 16:32 Urine Urobilinogen NEGATIVE mg/dL (<2.0) 08/01/19 16:32 Ur Leukocyte Esterase LARGE (NEGATIVE) H 08/01/19 16:32 Urine WBC (Auto) >182 /HPF 08/01/19 16:32 Urine RBC (Auto) 47 /HPF 08/01/19 16:32 Urine Bacteria (Auto) 3+ /HPF 08/01/19 16:32 Urine WBC Clumps MANY /HPF 08/01/19 16:32 Urine Mucus (Auto) RARE /LPF 08/01/19 16:32 Urine Ascorbic Acid NEGATIVE (NEGATIVE) 08/01/19 16:32 Plan Health Concerns: Recurrent episodes of hypoglycemia with hypertension. Possible early dementia. Plan of Treatment: I have instructed the patient not to use Lantus unless his Accu-Cheks are consistently greater than 150. If so then he should resume Lantus at a very small dose such as for to 8 units. I also suggested that a strict diabetic diet may be be able to eliminate the need for insulin and possibly he may be able to utilize oral agents (except metformin which she has an adverse reaction to). In addition I provided a prescription for ongoing antihypertensive therapy with lisinopril as well as antibiotic therapy. Goals: New diabetic and hypertensive regimens. Monitor for resolution of urinary tract infection and follow-up with primary care to assess for possible early dementia. Time Spent: Greater than 30 Minutes Stroke Is this a Stroke Patient?: No Acute Heart Failure - Is this a Heart Failure Patient?: No
[2019-08-03 15:44] VITALS: BP 157/85
== END 2019-08-03 18:08 | disposition home health service (06) ==
LOC: ER 13:14 → EH 17:54 → INTOOBSV 17:54 → 4N 21:11
PROVIDERS: ADMIT Internal Medicine; ATTEND Internal Medicine
DX: E11.649 Type 2 diabetes mellitus with hypoglycemia without coma (principal); N30.01 Acute cystitis with hematuria; I10 Essential (primary) hypertension; R41.0 Disorientation, unspecified; E03.9 Hypothyroidism, unspecified; E78.5 Hyperlipidemia, unspecified; F03.90 Unspecified dementia, unspecified severity, without behavioral disturbance, psychotic disturbance, mood disturbance, and anxiety; M62.81 Muscle weakness (generalized); Z87.891 Personal history of nicotine dependence; Z95.5 Presence of coronary angioplasty implant and graft; Z79.82 Long term (current) use of aspirin; Z79.899 Other long term (current) drug therapy; Z79.4 Long term (current) use of insulin; Z88.8 Allergy status to other drugs, medicaments and biological substances
CPT/HCPCS: 99285; 36415 ×2; 87040; 82962 ×3; 85025; 84443; 85027; 80048; 80053; 81001; 83036; 97530; 97163; G0378 ×4; A9270 ×9; J1644 ×3; J7030; J0696 ×3; J1815; J3490